=== PATIENT | male | born 1945 | race Caucasian/White ===

== ENCOUNTER 2018-05-22 11:06 | Day surgery (SDC) | payer BC, OTHER ==
[~2018-05-22] VITALS: Ht 172.7 cm; Wt 72.2 kg
[2018-05-22 12:05] VITALS: Ht 172.7 cm; Wt 72.2 kg
[2018-05-22] MEDS ORDERED: STOMACH ACID MED (12:16)
[2018-05-22] MEDS ORDERED: VITAMIN D (12:16)
[2018-05-22 13:09] VITALS: BP 168/73; PULSE 77; RESP 12
--- NOTE | 2018-05-22 13:19 | PREAC ---
Date/Time of Note Date/Time of Note DATE: 05/22/18 TIME: 13:18 Anesthesia Eval and Record Evaluation Time Pre-Procedure Interview DATE: 05/22/18 TIME: 13:18 Age 72 Sex male NPO: 8 hrs Preoperative diagnosis dysphagia abnormal GI radiological finding Planned procedure EGD / Colonoscopy Past Medical History Past Medical History: Includes Cardio: HTN Endo: Diabetes Pulm: COPD Renal: CKD GI: GERD Surgery & Anesthesia Issues No known issue Meds Anticoagulation: No Beta Carmen within 24 hr: No Reason Beta Carmen not given: Pt. not on B-Carmen Reported Medications [Stomach Acid Med] No Conflict Check 05/22/18 [Vitamin D] No Conflict Check, WEEKLY 05/22/18 Meds reviewed: Yes Allergies Coded Allergies: Penicillins (Verified Allergy, Unknown, 05/22/18) Allergies Reviewed: Yes Labs/Studies Labs Reviewed: Reviewed by anesthesiologist test: N/A Studies: ECG (SR) Pre-procedure Exam Airway: Adequate mouth opening Mallampati: Mallampati II Teeth: Normal Lung: Normal Heart: Normal ASA Physical Status ASA physical status: 3 Emergency: None Planned Anesthetic General/MAC: MAC Pre-operative Attestations Prior to commencing anesthesia and surgery, the patient was re-evaluated, there was verification of: *The patient's identity *The results of appropriate recent lab work and preoperative vital signs *The above evaluation not changing prior to induction *Anesthetic plan, risk benefits, alternative and complications discussed with patient/family; questions answered; patient/family understands, accepts and wishes to proceed. DAY LIRA May 22, 2018 13:19
--- NOTE | 2018-05-22 13:58 | PAC ---
Date/Time of Note Date/Time of Note DATE: 05/22/18 TIME: 13:57 Post-Anesthesia Notes Post-Anesthesia Note Last documented vital signs SpO2 100% facemask HR: 70 BP: 103/58 Temp: 36.6 Activity: WNL Respiratory function: WNL Cardiovascular function: WNL Mental status: Baseline Pain reasonably controlled: Yes Hydration appropriate: Yes Nausea/Vomiting absent: Yes DAY LIRA May 22, 2018 13:58
[2018-05-22] MEDS ORDERED: hydrALAzine 20 MG INJ IV PRN (14:00)
[2018-05-22] MEDS ORDERED: ONDANSETRON 4 MG INJ IV PRN (14:00)
[2018-05-22] MEDS ORDERED: LABETALOL HCL 20MG INJ IV PRN (14:00)
[2018-05-22] MEDS ORDERED: METOCLOPRAMIDE 10 MG INJ IV PRN (14:00)
[2018-05-22 14:23] VITALS: BP 150/79; PULSE 78; RESP 21
--- NOTE | 2018-05-22 14:35 | NUR ---
1425 Report received from DONALD Kidd. Patient awake, alert and oriented X4. Denies pain or discomfort. Passing flatus. All dc instructions given to pt with verbalization of understanding. Pt requesting to see Dr. Zuniga before going home. notified and will see pt soon.
--- NOTE | 2018-05-22 15:01 | NUR ---
Dr Zuniga in procedure still. Per , his office will call patient with results in the next week. Patient to get today's prescription filled and to start taking medication, pt verbalized understanding. Pt ambulates with steady gait. denies pain or discomfort, passing flatus. Denies nausea/vomiting. Pt discharged home in stable condition with sister Ludivina.
== END 2018-05-22 15:24 | disposition home or self-care (01) ==
LOC: GIL 11:06
PROVIDERS: ATTEND Internal Medicine
DX: R19.4 Change in bowel habit (principal); Z85.038 Personal history of other malignant neoplasm of large intestine; K22.70 Barrett's esophagus without dysplasia; K20.9 Esophagitis, unspecified; E11.9 Type 2 diabetes mellitus without complications; I12.9 Hypertensive chronic kidney disease with stage 1 through stage 4 chronic kidney disease, or unspecified chronic kidney disease; N18.9 Chronic kidney disease, unspecified; J44.9 Chronic obstructive pulmonary disease, unspecified
CPT/HCPCS: 87177; 88305; 88312; 88313